=== PATIENT | female | born 1950 ===

== ENCOUNTER 2024-04-09 07:30 | Day surgery (SDC) | payer OTHER ==
[2024-04-09] MEDS ORDERED: ONDANSETRON HCL 2 MG/ML VIAL IV ONE (11:45)
[2024-04-09] MEDS ORDERED: fentaNYL CITRATE 50 MCG/ML AMPUL IV PUSH ONE (11:45)
[2024-04-09] MEDS ORDERED: DIPHENHYDRAMINE HCL 50 MG/ML VIAL 1ML IV ONE (11:45)
[2024-04-09] MEDS ORDERED: MIDAZOLAM HCL 2 MG/2 ML VIAL IV ONE (11:45)
== END 2024-04-09 12:55 | disposition home or self-care (01) ==
LOC: AMB-ENDOS 07:30
PROVIDERS: ATTEND Colon & Rectal Surgery
DX: K63.5 Polyp of colon (principal); K62.5 Hemorrhage of anus and rectum